=== PATIENT | female | born 1935 | race Caucasian/White ===

== ENCOUNTER 2016-09-05 09:14 | Emergency (ER) | payer OTHER, BC ==
[~2016-09-05] VITALS: Ht 160 cm; Wt 68.0 kg
--- NOTE | ~2016-09-05 | EKG ---
[address] [place] [address] ELECTROCARDIOGRAM REPORT Name: CALOS ROSSI [facility] [id number] Admission: 09/05/16 Attend Phys: Discharge: 09/05/16 Date of : 39 Report #: [id number] THIS REPORT FOR: //name// [facility] ED Test Date: 2016-09-05 Test Time: 09:39:09 Pat Name: CALOS ROSSI Department: Room: Gender: F Store Sales Consultant: TRENTON Mckenzie : 1935 Requested By: Damir Min Order Number: [id number] MD: Ang Fountain Measurements Intervals [place] Rate: 73 P: 39 AR: 188 QRS: 50 QRSD: 96 T: 41 QT: 384 QTc: 424 Interpretive Statements Sinus rhythm Abnormal R-wave progression, early transition Compared to ECG 09/12/2013 12:53:23 No significant changes Electronically Signed On 09-07-2016 13:08:57 CDT by Ang Fountain [email or web address] <ELECTRONICALLY SIGNED> By: Ang Fountain MD, [facility] 09/07/16 1308 0939 8 Ang Fountain MD, FACC /EPI
[~2016-09-05 09:14] MED LIST: ASA81BEC; BP MED; BYSTOLIC 5 MG5 M1 PO; LISINOPRIL10 MG PO; MECLIZINE HCL25 MG PO; NORCO 5-325 TA1 EACH PO; SINGULAIR 10 MG10 M1; XANAX 0.25 MG0.25 MG PO; ZOCOR 10 MG TAB10 MG; ZOFRAN ODT4 MG PO
[2016-09-05] MEDS ORDERED: BYSTOLIC 5 MG5 M1 PO (09:43)
[2016-09-05 09:55] LABS: HEMATOCRIT 44.1 % (37.0-47.0); HEMOGLOBIN 14.8 gm/dL (12.0-15.0); MCH 29.8 pg (26.0-34.0); MCHC 33.6 g/dL (28.0-37.0); MCV 88.9 fL (80.0-100.0); RBC 4.96 mil/uL (4.20-5.00); RDW 14.2 % (10.5-14.5); WBC 5.5 thou/uL (4.0-11.0)
[2016-09-05 10:01] LABS: ANION GAP 7 mmol/L (7-16); BUN 24 mg/dL (7-18); CALCIUM 9.2 mg/dL (8.5-10.1); CHLORIDE 106 mmol/L (98-107); CO2 27 mmol/L (21-32); CREATININE 0.8 mg/dL (0.6-1.0); GLUCOSE 174 mg/dL (74-106); POTASSIUM 4.1 mmol/L (3.5-5.1); SODIUM 140 mmol/L (136-145)
[2016-09-05 10:09] LABS: TROPONIN-I < 0.04 ng/mL (<0.04-0.07)
[2016-09-05] MEDS ORDERED: PREDNISONE 20 M20 MG PO (10:55)
[2016-09-05] MEDS ORDERED: REFRESH LACRI-3.5 GM OP (10:55)
[2016-09-05 11:14] VITALS: BP 174/83
== END 2016-09-05 11:15 | disposition home or self-care (01) ==
LOC: ER 09:14
PROVIDERS: Emergency Medicine
DX: G51.0 Bell's palsy (principal); I10 Essential (primary) hypertension; E78.5 Hyperlipidemia, unspecified; Z79.82 Long term (current) use of aspirin

== ENCOUNTER → 2017-07-10 | Outpatient (CLI) | payer OTHER, BC ==
[~2017-07-10] MED LIST changes: +PREDNISONE 20 M20 MG PO; +REFRESH LACRI-3.5 GM OP
== END ==
LOC: RAD 14:46
DX: I10 Essential (primary) hypertension (principal); R06.02 Shortness of breath

== ENCOUNTER 2017-09-15 15:16 | Inpatient (IN) | payer OTHER, BC ==
[~2017-09-15] VITALS: Ht 160 cm; Wt 70.3 kg
--- NOTE | ~2017-09-15 | D ---
[facility] [place] [address] DISCHARGE SUMMARY Name: CALOS ROSSI Room #: 453-P [facility] IN M.R.#: [id number] Admission: 09/15/17 Attend Phys: Estevan Helms MD Discharge: 09/17/17 Date of : 39 Report #: [id number] THIS REPORT FOR: //name// CC: Waylon Helms DATE OF SERVICE: 09/17/2017 FINAL DIAGNOSES: 1. 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 2. Vertigo. 3. Acute hypoxic respiratory failure. HOSPITAL COURSE: The patient was admitted with dizziness. She was treated empirically for benign vertigo. Initial CT of the brain was negative and lab work unremarkable. A followup MRI of the brain showed no acute vascular event, usual home medications were continued. With conservative treatment of meclizine, her vertigo symptoms improved significantly. She also had relative hypoxia with room air sats in the mid to upper 80s. Oxygen was applied. Chest x-ray revealed pulmonary fibrosis. Dr. Salinas saw her in consultation. With reviewing outside films and her clinical history of smoking in the past, she was diagnosed with COPD due to bullous emphysema noted on prior CT. She required home O2 and she will continue Symbicort along with added albuterol inhaler. DISPOSITION: She is discharged to home with diet and activity as tolerated, resume all usual medications plus meclizine as needed, Ventolin inhaler as needed, home O2 and follow up with Dr. Espinosa in 1-2 weeks. <ELECTRONICALLY SIGNED> By: Estevan Helms MD 09/21/17 1104 1054 1124 Estevan Helms MD /nt
[~2017-09-15 15:16] MED LIST changes: -ANTIVERT25 MG PO; -ELIQUIS5 MG PO; -SYMBICORT80 MCG/4.1 INH; -TORSEMIDE10 MG PO; -VENTOLIN HFA 1818 GM INH; -ZOLOFT50 MG PO
[2017-09-15] MEDS ORDERED: TORSEMIDE10 MG PO (16:02)
[2017-09-15] MEDS ORDERED: ELIQUIS5 MG PO (16:02)
[2017-09-15] MEDS ORDERED: ZOLOFT50 MG PO (16:03)
[2017-09-15] MEDS ORDERED: SYMBICORT80 MCG/4.1 INH (16:03)
[2017-09-15 19:19] VITALS: BP 130/78
[2017-09-16 04:57] VITALS: BP 122/48
[2017-09-16 07:55] VITALS: BP 123/63
[2017-09-16 14:10] LABS: BE(vivo) 0.9 mmol/L (-2 to +3); HCO3 24.5 mmol/L (22.0-26.0); PCO2 36.2 mmHg (35.0-45.0); PO2 60.5 mmHg (80.0-100.0); pH 7.449 (7.360-7.450); sO2 92.4 % (92.0-98.0)
[2017-09-16 16:20] VITALS: BP 103/53
[2017-09-16 19:36] VITALS: BP 120/62
[2017-09-17 04:27] VITALS: BP 116/49
[2017-09-17 08:15] VITALS: BP 124/59
[2017-09-17] MEDS ORDERED: VENTOLIN HFA 1818 GM INH (11:31)
[2017-09-17] MEDS ORDERED: ANTIVERT25 MG PO (11:31)
[2017-09-17 14:34] VITALS: BP 124/59
== END 2017-09-17 16:05 | disposition home or self-care (01) | DRG 189 ==
LOC: 4W 15:16 → ENTRNSPT 09-17 15:53 → 4W 09-17 16:05
PROVIDERS: Internal Medicine Pulmonary Disease
DX: J96.01 Acute respiratory failure with hypoxia (principal); R42 Dizziness and giddiness; J84.10 Pulmonary fibrosis, unspecified; J44.9 Chronic obstructive pulmonary disease, unspecified; I48.91 Unspecified atrial fibrillation; M19.90 Unspecified osteoarthritis, unspecified site; R40.0 Somnolence; I10 Essential (primary) hypertension; E78.00 Pure hypercholesterolemia, unspecified; Z82.49 Family history of ischemic heart disease and other diseases of the circulatory system; Z98.49 Cataract extraction status, unspecified eye; Z87.891 Personal history of nicotine dependence
CPT/HCPCS: 10047

== ENCOUNTER → 2017-09-15 | Emergency (ER) | payer OTHER, BC ==
[~2017-09-15] VITALS: Ht 162.6 cm; Wt 70.3 kg
[~2017-09-15] MED LIST changes: +ANTIVERT25 MG PO; +ELIQUIS5 MG PO; +SYMBICORT80 MCG/4.1 INH; +TORSEMIDE10 MG PO; +VENTOLIN HFA 1818 GM INH; +ZOLOFT50 MG PO
--- NOTE | ~2017-09-15 | HC ---
[facility] [place] [address] CONSULTATION Name: CALOS ROSSI Room #: PRE [facility]..#: [id number] Admission: Attend Phys: Discharge: Date of : 39 Report #: [id number] THIS REPORT FOR: //name// CC: Eloy Rivera REFERRING PHYSICIAN: Waylon Espinosa M.D. REASON FOR REFERRAL: Abnormal chest x-ray. HISTORY OF PRESENT ILLNESS: The patient is a 81-year-old white female who presents to Emergency Room with weakness and vertigo. Chest x-ray showed bilateral interstitial fibrosis. A pulmonary consultation was requested. The patient had smoked most of her life for the past 50 years. She quit about a year ago. A year ago she underwent coronary bypass surgery at [facility]. Following the surgery she was found to have an abnormal chest x-ray. According to the patient, she had multiple chest x-rays including chest CT was performed. She was told by her heart surgeon that she has emphysema. She was doing fairly well until this past June when she started to notice increasing fatigue, dyspnea on exertion. Prior to that, she was doing fairly well. She also complained of daytime sleepiness. She normally retires to bed about 9:00 p.m., awakens multiple times until around 2:00-3:00 a.m. She is not able to fall back asleep. She is scheduled to undergo home sleep study. I believe it is scheduled for tonight. This may have to be rescheduled. She states her dyspnea on exertion has been worsening since June. It is difficult for her to walk more than a block. Otherwise, she denies any associated symptoms such as chest pain, palpitation or diaphoresis. No nausea or vomiting. Despite the tobacco history, she has been relatively asymptomatic. She has never been diagnosed with chronic lung disease. The patient has had a CT chest performed a few years ago at [facility]. It did show evidence of mild bilateral bullous disease. For the past few days she has noticed increasing dizziness. With worsening dizziness, she presented to Emergency Room. She states that she has had similar symptoms. She was told that she has vertigo about 10 years ago. Workup was said to be negative. Otherwise, she denies any recent night sweats, fever, chills, chest pain, [facility] [address] [place] [address] CONSULTATION Name: CALOS ROSSI Room #: [facility].#: [id number] Admission: Attend Phys: Discharge: Date of : 39 Report #: [id number] productive cough, nausea, vomiting, diarrhea. PAST MEDICAL HISTORY: Notable for coronary artery disease, undergone coronary bypass surgery in 10/2016 at [facility], hypertension. PAST SURGICAL HISTORY: As mentioned above. ALLERGIES: None to medications. HOME MEDICATIONS: Recent trial of prednisone, Symbicort 160 mcg 2 puffs twice a day, she does not know if that helps; torsemide 10 mg once a day, Eliquis 5 mg p.o. b.i.d., simvastatin 10 mg once a day, Bystolic, Zoloft. FAMILY HISTORY: Noncontributory. SOCIAL HISTORY: Tobacco use as mentioned above, having smoked about 50 years, quit about a year ago. She denies any alcohol use. She is , her about a year and a half ago. According to the daughters, there have been some eventful events this June. This past June was her 's birthday. Her last of the granddaughter also graduated from high school. REVIEW OF SYSTEMS: Otherwise, 10-point review of systems is negative. PHYSICAL EXAMINATION: GENERAL: She is awake, alert, in no apparent distress. VITAL SIGNS: Temperature 97.5 degrees Fahrenheit, pulse is 64, respiratory rate is 16, saturation 93%. HEENT: Normocephalic, atraumatic. NECK: Supple without any lymphadenopathy or thyromegaly. CHEST: Breath sounds are good with mild bilateral crackles. No wheezes. CARDIOVASCULAR: Normal S1, S2. No murmurs or gallop. There is no JVD. There is no carotid bruit. Pulses are 2+/4+ bilaterally. ABDOMEN: Soft, nontender, no organomegaly or masses felt. GENITOURINARY: Deferred. RECTAL: Deferred. EXTREMITIES: There is no edema, cyanosis or clubbing. LABORATORY DATA: Chest x-ray shows moderate diffuse bilateral interstitial changes suggestive of fibrosis. Calcified granulomas are seen in the right lower lung field. Electrolytes are normal, creatinine 0.9. Liver function enzymes are grossly unremarkable. WBC 6000, hemoglobin 15.4, platelets are normal. Albumin 3.1. IMPRESSION: 1. Vertigo. We will defer to primary team. 2. Bilateral interstitial infiltrates, likely pulmonary fibrosis. She has [facility] [address] [place] [address] CONSULTATION Name: FLOCALOS Singh Room #: PRE M.RMai#: [id number] Admission: Attend Phys: Discharge: Date of : 39 Report #: [id number] showing presence of bullous disease. The patient has had multiple chest CTs performed in [facility]. The patient is deferring a repeat chest CT. I will request chest CT from for review. This likely represents bullous disease along with pulmonary fibrosis. 3. Long history of tobacco use, probable chronic obstructive pulmonary disease. Symbicort did not seem to help at this time. A baseline PFTs will be helpful. 4. Coronary artery disease, status post coronary artery bypass surgery in 10/2016. 5. Hypertension, blood pressure was elevated in the Emergency Room. 6. Status post aortic valve replacement. 7. Atrial fibrillation, on anticoagulation. 8. Progressive daytime sleepiness since 06/2017. She does snore very loudly. A home sleep study will have to be rescheduled as the patient is currently hospitalized. It was originally scheduled for [facility]. She will have a followup in the office. RECOMMENDATION: We will continue bronchodilators. Supplemental O2 to keep saturations 90%. She will need baseline pulmonary functions, this can be done as an outpatient. We will review sleep study when performed. She will have a followup in the office approximately 2-4 weeks after test. Thank you for this consultation. <ELECTRONICALLY SIGNED> By: Bubba Salinas MD 09/16/17 1352 1304 1337 Bubba Salinas MD /nt
--- NOTE | ~2017-09-15 | EKG ---
[address] [place] [address] ELECTROCARDIOGRAM REPORT Name: CALOS ROSSI Room #: [facility]..#: [id number] Admission: Attend Phys: Discharge: Date of : 39 Report #: [id number] THIS REPORT FOR: //name// [facility] ED Test Date: 2017-09-15 Test Time: 16:05:54 Pat Name: CALOS ROSSI Department: Room: Gender: F Retail Shift Supervisor: [facility] : 1935 Requested By: Marco Antonio Walker Order Number: [id number] MD: Ang Fountain Measurements Intervals [place] Rate: 65 P: 41 [place]: 201 QRS: 45 QRSD: 98 T: 49 QT: 390 QTc: 406 Interpretive Statements Sinus rhythm Probable left atrial enlargement Nonspecific T abnormalities, anterior leads Compared to ECG 09/05/2016 09:39:09 T-wave abnormality now present Electronically Signed On 09-15-2017 17:13:09 CDT by Ang Fountain [email or web address] <ELECTRONICALLY SIGNED> By: Ang Fountain MD, [facility] 09/15/17 1713 1605 1605 Ang Fountain MD, FACC /EPI
--- NOTE | ~2017-09-15 | H ---
[facility] [address] [place] [address] HISTORY AND PHYSICAL Name: CALOS ROSSI Room #: PRE [facility]..#: [id number] Admission: Attend Phys: Discharge: Date of : 39 Report #: [id number] THIS REPORT FOR: //name// CC: Waylon Rivera DATE OF SERVICE: 09/15/2017 CHIEF COMPLAINT: Dizziness. HISTORY OF PRESENT ILLNESS: The patient is a 81-year-old female who came to the Emergency Room from home with EMS due to weakness and vertigo. Symptoms have been progressive for about the last day, and she called the office today and was directed to the hospital. She said she was so dizzy and imbalance that she was really unable to get up out of bed to her daughter's car to come to the hospital. Therefore, EMS was activated. She awoke at about 3:00 in the morning yesterday with extreme dizziness and imbalance and difficulty walking. She did not have any nausea, but reports later in the night when she rolled over in bed even with her eyes closed, she had a similar problem. Also for the last several weeks, she just had a general sense of fatigue and tiredness with exertion. She does not really report shortness of breath, but a family friend who was visiting with her this afternoon reports that there were times when she appeared out of breath when walking around the house or out to her mail box. PAST MEDICAL HISTORY: Hypertension, COPD. 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 She had paroxysmal AFib. She reports a remote history of vertigo. PAST SURGICAL HISTORY: As above. FAMILY HISTORY: Noncontributory. SOCIAL HISTORY: Denies chronic alcohol or tobacco use. ALLERGIES: None. MEDICATIONS: Demadex, Eliquis, Zocor, Bystolic. Zoloft. Symbicort. REVIEW OF SYSTEMS: She denies headache, chest pain, shortness of breath, abdominal pain, nausea, vomiting, diarrhea, constipation, dysuria, syncope. OBJECTIVE: VITAL SIGNS: Temperature 36.4, pulse 54, respirations 16, blood pressure 123/63, O2 sat 93% on 2 liters. GENERAL: She is awake and alert, in no distress. HEAD AND NECK: Unremarkable. She has no nystagmus. [facility] [address] [place] [address] HISTORY AND PHYSICAL Name: CALOS ROSSI Room #: [facility]..#: [id number] Admission: Attend Phys: Discharge: Date of : 39 Report #: [id number] LUNGS: Clear. NECK: No carotid bruits. HEART: Regular, no murmur. ABDOMEN: Soft, normoactive bowel sounds. EXTREMITIES: No edema. NEUROLOGIC: Cranial nerves intact. Speech is fluent. She is alert and oriented. Strength intact throughout. Chest x-ray suggested pulmonary fibrosis. Carotid ultrasound was negative. CT head was negative. ASSESSMENT: 1. Vertigo. 2. Diplopia. 3. Hypoxia. 4. Pulmonary fibrosis. 5. Paroxysmal atrial fibrillation by history. 6. History of ascending aortic aneurysm repair last October. PLAN: Cardiology Service who knows her well, has been in to see her and will follow. Regarding the pulmonary fibrosis, we have asked the Pulmonary Service to assess her as well. It is not clear in regards to this new hypoxia. She did describe some symptoms of double vision to me today, which I do not believe was reported through the ER and given the acute onset of vertigo and she described a vertigo episode about 2 weeks ago, I would be concerned for vascular event in light of a history of paroxysmal AFib. Therefore, MRI of the brain will be obtained. <ELECTRONICALLY SIGNED> By: Estevan Helms MD 09/17/17 1127 1408 1520 Estevan Helms MD /nt
[2017-09-15 16:31] LABS: ABSOLUTE NEUTROPHILS 3.8 thou/uL (1.4-8.2); BASOPHILS 1.1 % (0.0-2.0); EOSINOPHILS 1.7 % (0.0-3.0); HEMATOCRIT 44.8 % (37.0-47.0); HEMOGLOBIN 15.4 gm/dL (12.0-15.0); LYMPHOCYTES 24.7 % (24.0-44.0); MCH 29.8 pg (26.0-34.0); MCHC 34.5 g/dL (28.0-37.0); MCV 86.6 fL (80.0-100.0); MONOCYTES 9.6 % (1.0-8.0); PLATELET COUNT 174 thou/uL (150-400); POLYS 62.9 % (36.0-66.0); RBC 5.17 mil/uL (4.20-5.00); RDW 14.9 % (10.5-14.5)
[2017-09-15 16:42] LABS: ANION GAP 9 mmol/L (7-16); BUN 26 mg/dL (7-18); CALCIUM 8.8 mg/dL (8.5-10.1); CHLORIDE 105 mmol/L (98-107); CO2 23 mmol/L (21-32); CREATININE 0.9 mg/dL (0.6-1.0); GLUCOSE 138 mg/dL (74-106); POTASSIUM 3.8 mmol/L (3.5-5.1); SODIUM 137 mmol/L (136-145)
[2017-09-15 16:45] LABS: TROPONIN-I <0.06 ng/mL (<0.06)
[2017-09-15 17:47] LABS: ALBUMIN 3.1 g/dL (3.4-5.0); SGOT 29 U/L (15-37); SGPT 23 U/L (30-65); TOTAL BILIRUBIN 0.6 mg/dL (<0.1-1.0); TOTAL PROTEIN 8.4 g/dL (6.4-8.2)
[2017-09-16 17:31] LABS: URINE BILIRUBIN NEGATIVE (Negative); URINE BLOOD NEGATIVE (Negative); URINE CLARITY CLEAR; URINE COLOR YELLOW; URINE GLUCOSE-RANDOM* NEGATIVE (Negative); URINE KETONES TRACE (Negative); URINE LEUKOCYTES-REFLEX NEGATIVE (Negative); URINE NITRITE-REFLEX NEGATIVE (Negative); URINE PROTEIN (DIPSTICK) NEGATIVE (Negative); URINE SPECIFIC GRAVITY 1.025 (1.005-1.035); URINE UROBILINOGEN 0.2 E.U./dl (0.2-1.0)
== END ==
LOC: ER 15:45
PROVIDERS: Physician Assistant
DX: R42 Dizziness and giddiness (principal); G47.33 Obstructive sleep apnea (adult) (pediatric); R55 Syncope and collapse; I10 Essential (primary) hypertension

== ENCOUNTER → 2017-10-08 | Outpatient (CLI) | payer OTHER, BC ==
[~2017-10-08] MED LIST changes: +ANTIVERT25 MG PO; +ELIQUIS5 MG PO; +SYMBICORT80 MCG/4.1 INH; +TORSEMIDE10 MG PO; +VENTOLIN HFA 1818 GM INH; +ZOLOFT50 MG PO
== END ==
LOC: CAT 15:47
DX: J96.21 Acute and chronic respiratory failure with hypoxia (principal); J43.2 Centrilobular emphysema; M47.814 Spondylosis without myelopathy or radiculopathy, thoracic region; G47.19 Other hypersomnia; R53.83 Other fatigue

== ENCOUNTER → 2019-07-04 | Outpatient (CLI) | payer OTHER, BC | LOC: SJCVCIMAG 13:40 → SJCVC 13:40 | DX: I71.4 Abdominal aortic aneurysm, without rupture (principal); I71.2 Thoracic aortic aneurysm, without rupture; I48.0 Paroxysmal atrial fibrillation; D68.59 Other primary thrombophilia; G47.33 Obstructive sleep apnea (adult) (pediatric); M19.90 Unspecified osteoarthritis, unspecified site; Z79.899 Other long term (current) drug therapy; Z82.49 Family history of ischemic heart disease and other diseases of the circulatory system; Z98.890 Other specified postprocedural states; Z86.79 Personal history of other diseases of the circulatory system; Z87.891 Personal history of nicotine dependence ==

== ENCOUNTER → 2020-02-07 | Outpatient (CLI) | payer OTHER, BC | LOC: SJCVCIMAG 01-18 08:14 | PROVIDERS: ATTEND Internal Medicine Cardiovascular Disease | DX: I10 Essential (primary) hypertension (principal); E78.5 Hyperlipidemia, unspecified; R53.83 Other fatigue; R06.00 Dyspnea, unspecified; Z98.890 Other specified postprocedural states; Z79.899 Other long term (current) drug therapy ==

== ENCOUNTER → 2020-10-04 | Outpatient (CLI) | payer OTHER, BC | LOC: SJCVC 13:17 | PROVIDERS: ATTEND Internal Medicine Cardiovascular Disease | DX: I10 Essential (primary) hypertension (principal); E78.00 Pure hypercholesterolemia, unspecified; I48.0 Paroxysmal atrial fibrillation; G47.33 Obstructive sleep apnea (adult) (pediatric); J98.4 Other disorders of lung; Z95.1 Presence of aortocoronary bypass graft; Z95.2 Presence of prosthetic heart valve; Z88.8 Allergy status to other drugs, medicaments and biological substances; Z79.899 Other long term (current) drug therapy; Z98.890 Other specified postprocedural states; Z87.891 Personal history of nicotine dependence; Z86.79 Personal history of other diseases of the circulatory system; Z82.49 Family history of ischemic heart disease and other diseases of the circulatory system ==